=== PATIENT | female | born 1965 | race Caucasian/White ===

== ENCOUNTER 2020-09-14 06:32 | Emergency (ER) | payer BC, OTHER ==
[~2020-09-14] VITALS: Ht 153 cm; Wt 81.6 kg
[2020-09-14 06:53] LABS: BASOPHILS % (AUTO) 0 % (0-10); EOSINOPHILS % (AUTO) 0 % (0-10); HEMATOCRIT 48 % (35-52); HEMOGLOBIN 15.8 g/dL (11.5-16.0); LYMPHOCYTES % (AUTO) 20 % (12-44); MEAN CORPUSCULAR HEMOGLOBIN 31 pg (25-34); MEAN CORPUSCULAR HGB CONC 33 g/dL (32-36); MEAN CORPUSCULAR VOLUME 93 fL (80-99); MEAN PLATELET VOLUME 10.9 fL (9.0-12.2); MONOCYTES # (AUTO) 0.4 10^3/uL (0.0-1.0); MONOCYTES % (AUTO) 4 % (0-12); NEUTROPHILS # (AUTO) 7.3 10^3/uL (1.8-7.8); NEUTROPHILS % (AUTO) 75 % (42-75); PLATELET COUNT 253 10^3/uL (130-400); WHITE BLOOD COUNT 9.8 10^3/uL (4.3-11.0)
--- NOTE | 2020-09-14 06:53 | ED GI ---
General Chief Complaint: Abdominal/GI Problems Stated Complaint: ABD PAIN N/V Source of Information: Patient History of Present Illness Date Seen by Provider: Sep 14, 2020 Time Seen by Provider: 06:40 Initial Comments PT ARRIVES VIA POV FROM HOME C/O MID ABDOMINAL PAIN, NAUSEA/VOMITING/DIARRHEA SINCE 1800 YESTERDAY PAIN IS NEERAJ-UMBILICAL, OCCASIONALLY RADIATES TO BACK AND RIGHT SIDE OF ABDOMEN PAIN COMES AND GOES, NOTHING WORSENS OR IMPROVES PAIN. PAIN IS NOT PRESENT NOW STATES MAIN COMPLAINT NOW IS NAUSEA, HAS HAD DRY HEAVES 3-4 TIMES, BUT NOT ACTUALLY VOMITED. PT HAS HAD PRIOR HIATAL HERNIA REPAIR C/O DIARRHEA X 3-4 TIMES, WATERY AND CLEAR. 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 PT HAS ALSO HAD PRIOR CHOLECYSTECTOMY PT IS MENOPAUSAL PT HAS HAD BOTH COVID-19 VACCINES --LAST ONE WAS IN [place] PT GETS TESTED FOR COVID-19 AT WORK, LAST TIME WAS 3 WEEKS AGO And WAS NEGATIVE Modifying Factors: Worsens With Lying down PCP: [facility] Allergies and Home Medications Allergies Coded Allergies: No Known Drug Allergies (Unverified , 09/14/20) Home Medications Hyoscyamine Sulfate 0.125 Mg Tab.subl, 0.25 MG SL Q4H Prescribed by: CHAI PATTEN on 09/14/20924 Ondansetron 8 Mg Tab.rapdis, 8 MG PO Q6H Prescribed by: CHAI PATTEN on 09/14/20923 Pantoprazole Sodium 40 Mg Tablet.dr, 40 MG PO DAILY Prescribed by: CHAI PATTEN on 09/14/20923 Promethazine HCl 25 Mg Supp.rect, 25 MG RC Q6 Prescribed by: CHAI PATTEN on 09/14/20923 Patient Home Medication List Home Medication List Reviewed: Yes Review of Systems Review of Systems Constitutional: see HPI, fever EENTM: No Symptoms Reported Respiratory: No Symptoms Reported Cardiovascular: No Symptoms Reported Gastrointestinal: See HPI, Abdominal Pain, Diarrhea, Nausea, Poor Appetite, Poor Fluid Intake Genitourinary: No Symptoms Reported Musculoskeletal: see HPI Skin: no symptoms reported Psychiatric/Neurological: No Symptoms Reported Endocrine: No Symptoms Reported Hematologic/Lymphatic: No Symptoms Reported Past Eqspzon-Ynzset-Cpkwnv Hx Patient Social History Tobacco Use?: Yes Tobacco type used: Cigarettes Smoking Status: Current Everyday Smoker Substance use?: No Alcohol Use?: Yes Alcohol Frequency: Once in a while Pt feels they are or have been: No Immunizations Up To Date First/Initial COVID19 Vaccinat: 04/20 Second COVID19 Vaccination Sree: 05/18 Past Medical History Surgery/Hospitalization HX: COLONOSCOPY/POLYPECTOMY 10/2009 HIATAL HERNIA REPAIR CHOLECYSTECTOMY Surgeries: Yes Abdominal, Gallbladder Respiratory: No Cardiac: No Neurological: No Female Reproductive Disorders: Denies [employer] History: Menopausal Genitourinary: No Gastrointestinal: Yes Gastroesophageal Reflux, Hemorrhoids, Polyps, Hiatal Hernia, Gall Bladder Disease Musculoskeletal: No Endocrine: No HEENT: No Cancer: No Psychosocial: No Integumentary: No Blood Disorders: No Physical Exam Vital Signs Vital Signs - First Documented 09/14/20 06:39 Temp 36.1 Pulse 95 Resp 18 B/P (MAP) 118/82 (94) Pulse Ox 96 O2 Delivery Room Air Capillary Refill : Height/Weight/BMI Height: '" Weight: lbs. oz. 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, no motor/sensory deficits, alert, normal mood/affect, oriented x 3 Skin: normal color, warm/dry Progress/Results/Core Measures Results/Orders Lab Results Laboratory Tests Test 09/14/20 06:42 09/14/20 06:47 Range/Units White Blood Count 9.8 4.3-11.0 10^3/uL Red Blood Count 5.16 H 3.80-5.11 10^6/uL Hemoglobin 15.8 11.5-16.0 g/dL Hematocrit 48 35-52 % Mean Corpuscular Volume 93 80-99 fL Mean Corpuscular Hemoglobin 31 25-34 pg Mean Corpuscular Hemoglobin Concent 33 32-36 g/dL Red Cell Distribution Width 13.4 10.0-14.5 % Platelet Count 253 130-400 10^3/uL Mean Platelet Volume 10.9 9.0-12.2 fL Immature Granulocyte % (Auto) 0 % Neutrophils (%) (Auto) 75 42-75 % Lymphocytes (%) (Auto) 20 12-44 % Monocytes (%) (Auto) 4 0-12 % Eosinophils (%) (Auto) 0 0-10 % Basophils (%) (Auto) 0 0-10 % Neutrophils # (Auto) 7.3 1.8-7.8 10^3/uL Lymphocytes # (Auto) 2.0 1.0-4.0 10^3/uL Monocytes # (Auto) 0.4 0.0-1.0 10^3/uL Eosinophils # (Auto) 0.0 0.0-0.3 10^3/uL Basophils # (Auto) 0.0 0.0-0.1 10^3/uL Immature Granulocyte # (Auto) 0.0 0.0-0.1 10^3/uL Sodium Level 140 135-145 MMOL/L Potassium Level 4.0 3.6-5.0 MMOL/L Chloride Level 107 98-107 MMOL/L Carbon Dioxide Level 22 21-32 MMOL/L Anion Gap 11 5-14 MMOL/L Blood Urea Nitrogen 9 7-18 MG/DL Creatinine 0.90 0.60-1.30 MG/DL Estimat Glomerular Filtration Rate > 60 BUN/Creatinine Ratio 10 Glucose Level 135 H 70-105 MG/DL Calcium Level 9.3 8.5-10.1 MG/DL Corrected Calcium 8.5-10.1 MG/DL Total Bilirubin 0.8 0.1-1.0 MG/DL Aspartate Amino Transf (AST/SGOT) 25 5-34 U/L Alanine Aminotransferase (ALT/SGPT) 35 0-55 U/L Alkaline Phosphatase 50 40-136 U/L Total Protein 7.7 6.4-8.2 GM/DL Albumin 4.7 H 3.2-4.5 GM/DL Amylase Level 64 25-125 U/L Lipase 18 8-78 U/L Urine Color YELLOW Urine Clarity CLEAR Urine pH 6.0 5-9 Urine Specific [place] >=1.030 1.016-1.022 Urine Protein 1+ H NEGATIVE Urine Glucose (UA) NEGATIVE NEGATIVE Urine Ketones 3+ H NEGATIVE Urine Nitrite NEGATIVE NEGATIVE Urine Bilirubin 1+ H NEGATIVE Urine Urobilinogen 0.2 < = 1.0 MG/DL Urine Leukocyte Esterase TRACE H NEGATIVE Urine RBC (Auto) 3+ H NEGATIVE Urine RBC 5-10 H /HPF Urine WBC 0-2 /HPF Urine Squamous Epithelial Cells 5-10 /HPF Urine Crystals NONE /LPF Urine Bacteria FEW H /HPF Urine Casts NONE /LPF Urine Mucus SMALL H /LPF Urine Culture Indicated NO My Orders Orders - CHAI PATTEN DO Amylase (09/14/20 06:39) Cbc With Automated Diff (09/14/20 06:39) Comprehensive Metabolic Panel (09/14/20 06:39) Lipase (09/14/20 06:39) Ua Culture If Indicated (09/14/20 06:39) Ondansetron Injection (Zofran Injectio (09/14/20 07:00) Ed Iv/Invasive Line Start (09/14/20 06:47) Lactated Ringers (Lr 1000 Ml Iv Solution (09/14/20 07:00) Ct Abd/Pelv W (Appendicitis) (09/14/20 06:47) Ondansetron Injection (Zofran Injectio (09/14/20 08:00) Iohexol Injection (Omnipaque 350 Mg/Ml 1 (09/14/20 08:00) Received Contrast (Hold Metformin- Contr (09/14/20 08:00) Sodium Chloride Flush (Catheter Flush Sy (09/14/20 08:00) Ns (Ivpb) (Sodium Chloride 0.9% Ivpb Bag (09/14/20 08:00) Pantoprazole Injection (Protonix Injecti (09/14/20 08:30) Promethazine Injection (Phenergan Injec (09/14/20 08:30) Diphenhydramine Injection (Benadryl Inje (09/14/20 08:30) Lidocaine 2% Viscous 15 Ml (Xylocaine Vi (09/14/20 08:30) Antacid Suspension (Mylanta Suspension (09/14/20 08:30) Medications Given in ED Current Medications Medications Dose Ordered Sig/Jorge Alberto Route Start Time Stop Time Status Last Admin Dose Admin Al Hydrox/Mg Hydrox/Simethicone 30 ml ONCE ONCE PO 09/14/20 08:30 09/14/20 08:31 DC 09/14/20 08:56 30 ML Diphenhydramine HCl 25 mg ONCE ONCE IVP 09/14/20 08:30 09/14/20 08:31 DC 09/14/20 08:41 25 MG Iohexol 100 ml ONCE ONCE IV 09/14/20 08:00 09/14/20 08:01 DC 09/14/20 07:54 100 ML Lactated Ringer's 1,000 ml @ 0 mls/hr Q0M ONCE IV 09/14/20 07:00 09/14/20 07:01 DC 09/14/20 06:58 1,000 MLS/HR Lidocaine HCl 15 ml ONCE ONCE PO 09/14/20 08:30 09/14/20 08:31 DC 09/14/20 08:56 15 ML Ondansetron HCl 4 mg ONCE ONCE IVP 09/14/20 07:00 09/14/20 07:01 FL 09/14/20 06:57 4 MG Ondansetron HCl 4 mg ONCE ONCE IVP 09/14/20 08:00 09/14/20 08:01 FL 09/14/20 07:52 4 MG Pantoprazole 40 mg ONCE ONCE IV 09/14/20 08:30 09/14/20 08:31 FL 09/14/20 08:36 40 MG Promethazine HCl 25 mg ONCE ONCE IVP 09/14/20 08:30 09/14/20 08:31 FL 09/14/20 08:38 25 MG Sodium Chloride 10 ml NEEDED PRN IV 09/14/20 08:00 09/14/20 07:54 10 ML Sodium Chloride 100 ml ONCE ONCE IV 09/14/20 08:00 09/14/20 08:01 FL 09/14/20 07:54 80 ML Vital Signs/I&O 09/14/20 06:39 Temp 36.1 Pulse 95 Resp 18 B/P (MAP) 118/82 (94) Pulse Ox 96 O2 Delivery Room Air Progress Progress Note : Progress Note GIVEN IV FLUIDS AND ZOFRAN WITH TRANSIENT IMPROVEMENT IN NAUSEA 824--AFTER RETURNING FROM CT, PT NOW WITH EPIGASTRIC DISCOMFORT And INCREASED NAUSEA. ADDITIONAL MEDICATIONS ORDERED--COMPLETE RESOLUTION OF SYMPTOMS Diagnostic Imaging Comments CT ABDOMEN/PELVIS--NO ACUTE PROCESS, PER RADIOLOGIST REPORT AT 0826 Reviewed: Reviewed by Me Departure Impression Primary Impression: Gastroenteritis Additional Impression: Abdominal pain Disposition: 01 HOME, SELF-CARE Condition: Improved Departure-Patient Inst. Decision time for Depature: 09:20 Referrals: [facility]/ (PCP/Family) Primary Care Physician Patient Instructions: Abdominal Pain, Adult ED, [id number] Add. Discharge Instructions: CLEAR LIQUIDS--WATER, BROTH, JELLO, GATORADE TOMORROW IF YOU ARE BETTER, ADD BRATS DIET TO CLEAR LIQUIDS--BANANAS, RICE, APPLESAUCE, TOAST, SALTINES FOLLOW UP WITH YOUR DR IN 1-2 DAYS IF NO BETTER, RETURN TO ER IF WORSE All discharge instructions reviewed with patient and/or family. Voiced understanding. Scripts Hyoscyamine Sulfate (Levsin-Sl) 0.125 Mg Tab.subl 0.25 MG SL Q4H, #10 TAB Prov: CHAI PATTEN DO 09/14/20 Pantoprazole Sodium (Protonix) 40 Mg Tablet.dr 40 MG PO DAILY, #15 TAB Prov: CHAI PATTEN DO 09/14/20 Promethazine HCl (Promethazine Suppository) 25 Mg Supp.rect 25 MG RC Q6 for Nausea/Vomiting, #10 SUPP.RECT Prov: CHAI PATTEN DO 09/14/20 Ondansetron (Ondansetron Odt) 8 Mg Tab.rapdis 8 MG PO Q6H, #10 TAB Prov: CHAI PATTEN DO 09/14/20 CHAI PATTEN DO Sep 14, 2020 06:53
[2020-09-14 07:00] LABS: CLARITY,URINE CLEAR; COLOR,URINE YELLOW; GLUCOSE, URINE (UA) NEGATIVE (NEGATIVE); KETONES,URINE 3+ (NEGATIVE); LEUKOCYTE ESTERASE ,URINE TRACE (NEGATIVE); NITRITE,URINE NEGATIVE (NEGATIVE); PROTEIN,URINE 1+ (NEGATIVE)
[2020-09-14] MEDS ORDERED: ONDANSETRON 4 MG/2 ML (SDV) Z0FRAN IVP ONE ×2 (07:00→08:00)
[2020-09-14] MEDS ORDERED: LACTATED RINGERS 1,000 ML IV ONE (07:00)
[2020-09-14 07:13] LABS: ALBUMIN 4.7 GM/DL (3.2-4.5); CHLORIDE 107 MMOL/L (98-107); SODIUM 140 MMOL/L (135-145)
[2020-09-14 07:14] LABS: AMYLASE 64 U/L (25-125); CALCIUM 9.3 MG/DL (8.5-10.1)
[2020-09-14 07:15] LABS: GLUCOSE 135 MG/DL (70-105)
[2020-09-14 07:16] LABS: TOTAL PROTEIN 7.7 GM/DL (6.4-8.2)
[2020-09-14 07:17] LABS: BILIRUBIN,TOTAL 0.8 MG/DL (0.1-1.0); CARBON DIOXIDE 22 MMOL/L (21-32)
[2020-09-14 07:19] LABS: ALKALINE PHOSPHATASE 50 U/L (40-136); GFR ESTIMATED > 60
[2020-09-14 07:20] LABS: BUN/CREATININE RATIO 10
[2020-09-14 07:21] LABS: BILIRUBIN,URINE 1+ (NEGATIVE)
[2020-09-14 07:22] LABS: BACTERIA,URINE FEW /HPF; WBC,URINE 0-2 /HPF
[2020-09-14 07:22] LABS: ALANINE AMINOTRANSFERASE 35 U/L (0-55)
[2020-09-14 07:23] LABS: LIPASE 18 U/L (8-78)
[2020-09-14] MEDS ORDERED: HOLD METFORMIN - RECEIVED CONTRAST 20 ML VIAL IV SCH (08:00)
[2020-09-14] MEDS ORDERED: NS 100 ML (IVPB) BAG IV ONE (08:00)
[2020-09-14] MEDS ORDERED: CATHETER FLUSH 10 ML SYR IV PRN (08:00)
[2020-09-14] MEDS ORDERED: IOHEXOL 350 MG/ML 100 ML (OMNIPAQUE 350) VIAL IV ONE (08:00)
--- NOTE | 2020-09-14 08:00 | Diagnostic Imaging Report ---
EXAMINATION: CT abdomen and pelvis with intravenous contrast. TECHNIQUE: Multiple contiguous axial images were obtained through the abdomen and pelvis after the uneventful administration of intravenous contrast. All CT scans use one or more of the following dose optimizing techniques: automated exposure control, MA and/or KvP adjustment based on patient size and exam type or iterative reconstruction. HISTORY: Right lower quadrant pain. COMPARISON: None available. FINDINGS: The heart is unremarkable. The included lung bases are clear. The liver, spleen, pancreas, adrenal glands, and kidneys have a normal appearance. The gallbladder is surgically absent. There is no pathologically enlarged mesenteric or retroperitoneal adenopathy. The bowel loops are nondilated. The appendix is visualized in the right lower quadrant and has a normal appearance. There is no free fluid or free air. No acute osseous abnormalities. Small amount of atherosclerotic plaque is seen in the distal abdominal aorta and bilateral iliac systems without evidence of aneurysm. The urinary bladder is decompressed. There is no free air, loculated collection, or adenopathy in the pelvis. IMPRESSION: 1. No acute abnormalities are seen in the abdomen and pelvis. No bowel obstruction. No free fluid or free air. Normal appendix. Dictated by: Dictated on workstation # [id number]
[2020-09-14] MEDS ORDERED: LIDOCAINE 2% VISCOUS 15 ML UDC PO ONE (08:30)
[2020-09-14] MEDS ORDERED: ANTACID SUSP 30 ML UDC (MYLANTA) PO ONE (08:30)
[2020-09-14] MEDS ORDERED: PROMETHAZINE INJ 25 MG/ML (PHENERGAN) AMP IVP ONE (08:30)
[2020-09-14] MEDS ORDERED: PANTOPRAZOLE 40 MG (PROTONIX) VIAL IV ONE (08:30)
[2020-09-14] MEDS ORDERED: diphenhydrAMINE 50 MG/ML INJ (BENADRYL) IVP ONE (08:30)
[2020-09-14] MEDS ORDERED: ONDA8TAB13 PO (09:24)
[2020-09-14] MEDS ORDERED: PROM25SU44 RC (09:24)
[2020-09-14] MEDS ORDERED: PANT40TA2 PO (09:24)
[2020-09-14] MEDS ORDERED: HYOS0.1283 SL (09:25)
[2020-09-14 10:05] VITALS: BP 104/79
== END 2020-09-14 10:05 | disposition home or self-care (01) ==
LOC: EDUNIT# 06:32 → ER 06:36
DX: K52.9 Noninfective gastroenteritis and colitis, unspecified (principal); F17.210 Nicotine dependence, cigarettes, uncomplicated; Z90.49 Acquired absence of other specified parts of digestive tract
CPT/HCPCS: 36415; 74177; 80053; 81000; 82150; 83690; 85025

== ENCOUNTER → 2022-12-07 | Outpatient (CLI) | payer BC ==
[~2022-12-07] MED LIST: HYOS0.1283 SL; ONDA8TAB13 PO; PANT40TA2 PO; PROM25SU44 RC
--- NOTE | 2022-12-07 10:03 | Diagnostic Imaging Report ---
INDICATION: Palpitations, family history of coronary disease. TECHNIQUE: The CT coronary calcium scoring study was performed with noncontrast images of the heart followed by calculation of cardiac calcium score. Dose reduction protocol was used. FINDINGS: The visualized portions of the mediastinum show no adenopathy. The aorta was not aneurysmal. The visualized portions of the lung najera are clear but the entirety of the lungs was not included on the study. There are mild coronary calcifications visualized in the left main and LAD territory. Calcium score of 1.79 was obtained for the left main and 0.99 for LAD. No significant calcification was seen in the circumflex territory or right coronary artery territory. IMPRESSION: Coronary calcification score was 2.78, compatible with an overall minimal plaque burden. Consider followup as clinically warranted. Dictated by: Dictated on workstation # [id number]
== END ==
LOC: RAD 08:44
PROVIDERS: ATTEND Nurse Practitioner Family
DX: E66.9 Obesity, unspecified (principal); R00.2 Palpitations; Z72.0 Tobacco use; Z80.9 Family history of malignant neoplasm, unspecified
CPT/HCPCS: 75571